=== PATIENT | female | born 1975 | race Caucasian/White ===

== ENCOUNTER 2019-11-19 17:22 | Emergency (ER) | payer MEDICAID ==
[~2019-11-19] VITALS: Ht 162.6 cm; Wt 75.0 kg
[~2019-11-19 17:22] MED LIST: BACDS PO; LACT1CAP26 PO
[2019-11-19 17:48] VITALS: BP 124/78
[2019-11-19] MEDS ORDERED: CLIN300C70 PO (18:00)
== END 2019-11-19 18:24 | disposition home or self-care (01) ==
LOC: ER 17:23
DX: K04.7 Periapical abscess without sinus (principal); G89.29 Other chronic pain; F41.9 Anxiety disorder, unspecified; F15.90 Other stimulant use, unspecified, uncomplicated; Z72.89 Other problems related to lifestyle; Z88.8 Allergy status to other drugs, medicaments and biological substances; Z79.2 Long term (current) use of antibiotics; Z79.899 Other long term (current) drug therapy
CPT/HCPCS: 99283

== ENCOUNTER 2020-11-11 04:03 | Emergency (ER) | payer MEDICAID ==
[~2020-11-11] VITALS: Ht 162.6 cm; Wt 85.0 kg
[~2020-11-11 04:03] MED LIST changes: -BACDS PO; +SULF1TAB45 PO
[2020-11-11 04:19] VITALS: BP 128/92
[2020-11-11] MEDS ORDERED: NAPR-56 PO (04:40)
[2020-11-11] MEDS ORDERED: amox tr/potassium clavulanate 875/125mg TAB PO ONE (04:40)
[2020-11-11] MEDS ORDERED: naproxen 500mg tablet PO ONE (04:40)
[2020-11-11] MEDS ORDERED: AMOX-117 PO (04:40)
[2020-11-11] MEDS ORDERED: HYDROcodone/acetaminophen 5mg/325mg tablet PO ONE (04:40)
== END 2020-11-11 04:51 | disposition home or self-care (01) ==
LOC: ER 04:03
DX: K04.7 Periapical abscess without sinus (principal); K02.9 Dental caries, unspecified; K08.89 Other specified disorders of teeth and supporting structures; G89.29 Other chronic pain; F41.9 Anxiety disorder, unspecified; F15.90 Other stimulant use, unspecified, uncomplicated; Z72.89 Other problems related to lifestyle; Z88.8 Allergy status to other drugs, medicaments and biological substances; Z79.2 Long term (current) use of antibiotics; Z79.899 Other long term (current) drug therapy
CPT/HCPCS: 99284

== ENCOUNTER 2022-03-27 22:54 | Emergency (ER) | payer MEDICAID ==
[~2022-03-27] VITALS: Ht 162.6 cm; Wt 86.4 kg
[2022-03-27 22:57] VITALS: BP 141/73
[2022-03-27] MEDS ORDERED: AMOX-117 PO (23:10)
[2022-03-27] MEDS ORDERED: amox tr/potassium clavulanate 875/125mg TAB PO ONE (23:15)
[2022-03-27] MEDS ORDERED: TETanus/Pertussis (Acell)/Diphther VAC/PF (Tdap-Adult) 0.5ml syringe IMVAC ONE (23:25)
== END 2022-03-27 23:50 | disposition home or self-care (01) ==
LOC: ER 22:54
DX: S61.431A Puncture wound without foreign body of right hand, initial encounter (principal); G89.29 Other chronic pain; M54.9 Dorsalgia, unspecified; F41.9 Anxiety disorder, unspecified; F15.10 Other stimulant abuse, uncomplicated; Z88.8 Allergy status to other drugs, medicaments and biological substances; Z79.899 Other long term (current) drug therapy; W54.0XXA Bitten by dog, initial encounter; Y93.89 Activity, other specified; Y92.89 Other specified places as the place of occurrence of the external cause; Y99.8 Other external cause status
CPT/HCPCS: 73130; 90471; 90715; 99283

== ENCOUNTER 2024-11-16 15:24 | Emergency (ER) | payer MEDICAID ==
[~2024-11-16] VITALS: Ht 162.6 cm; Wt 77.0 kg
--- NOTE | 2024-11-16 15:42 | Physician Documentation ---
History of Present Illness ~ Chief Complaint: Wound Stated Complaint: LEG WOUND Time Seen by MD: 16:19 Primary Medical Doctor: none HPI This is a 48-year-old female who presents to the emergency department due to concerns for development of a large wound to the posterior left calf. She reports that she scraped the left lower extremity on her bed frame about 10 days ago, and developed extensive significant erythema to the entire left leg as a result. She saw her primary care provider at [facility] and was started on linezolid and Augmentin. She is still taking these medications. She has a new concern today, and that has is this large wound to the posterior calf. She believes that this occurred due to the massive swelling in the left lower extremity which did have a blistered appearance at one time. She otherwise endorses feeling overall well, denies chills or fever, nausea or vomiting, shortness of breath. 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 Tetanus within 5 years?: Yes Medication Reconciliation Allergies: Coded Allergies: gabapentin (Verified Allergy, Intermediate, 11/11/20) Scheduled Bacitracin Oint Packet* (Bacitracin Oint Packet*), 1 APPLIC TP BID Lactobacillus Rhamnosus (Culturelle), 10,000 MMU PO BIDWM Sulfamethoxazole/Trimethoprim (Septra Ds Tab), 1 TAB PO BID Past Medical History Past Medical History: Chronic Back Pain, Anxiety Past Surgical History: noncontributory Patient History: Patient reports no known family medical history. Alcohol Use: Occasionally Drug Use: methamphetamine Lives In: Home Review of Systems ROS As stated above in the HPI, otherwise all systems are reviewed and negative. Physical Exam Vital Signs: Temperature: 98.2, Source: Temporal, Heart Rate: 118, Respiratory Rate: 16, BP: 135/86, Pulse Oximetry: 95, Weight: 77.000 Oxygen Flow Rate: 0 Physical Exam General: Alert, no apparent distress. Appears older than stated age. Neck: Full range of motion. Respiratory: Lungs clear, no respiratory distress. janny Chest: No accessory muscle use. Cardiovascular: Regular rate and rhythm, 2/6 systolic murmur. Gastrointestinal: Soft, nontender, nondistended. Bowels sounds present. Extremities: 1+ edema with brawny discoloration RLE. Left leg is edematous and erythematous to the knee, 2+. There is a large ovoid 6x8 cm open area posterior left calf with yellow white center, tender to touch. No firm fluctuance to indicate abscess. Neurologic: Oriented x4. Psychiatric: Normal mood and affect. Skin: Normal color, warm and dry. No edema, no ecchymosis. Progress Progress Note 1710: Patient discussed with [facility]. Results/Orders Results/Orders Orders - KEMI DUPREE INDEPENDENT VIDEO PRODUCER Dressing Orders (11/16/24 17:26) Wound Care Orders (11/16/24 17:26) Completed Orders - KEMI DUPREE INDEPENDENT VIDEO PRODUCER BMP (11/16/24 16:20) Cbc/Diff (11/16/24 16:20) Tetanus/Pertuss/Diph Acell/Pf (Boostrix (11/16/24 17:30) Bacitracin Ointment (Bacitracin Ointment (11/16/24 17:30) Hydrocodone/Apap 5/325mg Tab ([place] 5/32 (11/16/24 17:55) Medications Received in ER Medications (Trade) Dose Ordered Sig/[place] Route PRN Reason Start Time Stop Time Status Last Admin Dose Admin (Boostrix vaccine syringe) 0.5 ml ONCE ONCE IMVAC 11/16/24 17:30 11/16/24 17:31 DC 11/16/24 17:40 0.5 ML (bacitracin ointment) 1 applic ONCE ONCE TP 11/16/24 17:30 11/16/24 17:31 DC 11/16/24 17:42 1 APPLIC ([place] 5/325mg tablet) 1 tab ONCE ONCE PO 11/16/24 17:55 11/16/24 17:56 DC 11/16/24 18:04 1 TAB Vital Signs 11/16/24 11/16/24 11/16/24 15:25 16:32 18:04 Temp 98.2 Pulse 118 Resp 16 18 B/P (MAP) 135/86 Pulse Ox 95 O2 Flow Rate 0 Laboratory Tests Test 11/16/24 17:00 White Blood Count 4.9 Red Blood Count 3.55 L Hemoglobin 9.6 L Hematocrit 28.9 L Mean Corpuscular Volume 81.5 Mean Corpuscular Hemoglobin 27.1 Mean Corpuscular Hemoglobin Concent 33.3 Red Cell Distribution Width 14.6 H Platelet Count 332 Mean Platelet Volume 6.5 L Neutrophils (%) (Auto) 59.3 Lymphocytes (%) (Auto) 30.4 Monocytes (%) (Auto) 7.3 Eosinophils (%) (Auto) 2.3 Basophils (%) (Auto) 0.7 Neutrophils # (Auto) 2.9 Lymphocytes # (Auto) 1.5 Monocytes # (Auto) 0.4 Eosinophils # (Auto) 0.1 Basophils # (Auto) 0.0 CBC Comment Sodium Level 137 Potassium Level 3.9 Chloride Level 101 Carbon Dioxide Level 30.5 Anion Gap 6 L Blood Urea Nitrogen 15 Creatinine 0.69 Estimated GFR/1.73 m2 > 90 BUN/Creatinine Ratio 21.7 H Glucose Level 103 Calcium Level 9.2 Albumin 3.5 Chemistry Comments Medical Decision Making Findings MSE performed in triage and patient returned to ED lobby by nursing staff to await available ED room Differential Dx:Considerations: Include: Abscess, Cellulitis, Dressing change, Healing wound Additional Comment 48 yr old female with hx of methamphetamine use. Found to have systolic murmur today, venous stasis changes RLE, and erythema/edema and wounds to LLE. Still has two days of Zyvoxx and Augmentin left. Will f/u with PCP later this week. No signs of sepsis. No fevers. Reports LLE swelling improving. Wound care provided, including update of tetanus status. Is to return if worse at any time. Ap propriate for outpatient care and PCP followup. Should request cardiology referral from PCP. Departure Time of Disposition: 17:23 Disposition: 01 HOME / SELF CARE / HOMELESS Impression: Primary Impression: Wound Additional Impression: Murmur, cardiac Condition: Stable Discharge Instructions: Heart Murmur, How to Change Your Wound Dressing Additional Instructions: Please keep your upcoming followup appointment with your primary care provider for recheck of your leg. Please discuss your heart murmur and hx of methamphetamine use with your primary care and request a referral to a physician intensivist for further evaluation. Complete the antibiotics as prescribed. Apply bacitracin/non-stick bandage to the large left posterior calf wound. Return if worse at any time. Referrals: NO PRIMARY CARE PROVIDER (PCP) Prescriptions Bacitracin Oint Packet* (Bacitracin Oint Packet*) 1 Each Packet 1 APPLIC TP BID for 10 Days, #20 PACKET Prov: KEMI DUPREE NP 11/16/24 Education Educated: Patient Educated regarding: diagnosis, treatment, prognosis, need for follow up Signature Scribe Signature: x Attestation: The note accurately reflects work and decisions made by me.Kemi Douglas NP 11/16/24 17:15 ROSALIA MASTERS Nov 16, 2024 15:42 KEMI DUPREE NP Nov 16, 2024 17:12
[2024-11-16 17:23] LABS: MEAN PLATELET VOLUME 6.5 FL (7.4-10.4); RED CELL DISTRIBUTION WIDTH 14.6 % (11.5-14.5)
[2024-11-16] MEDS ORDERED: BACI1PAC7 TP (17:25)
[2024-11-16 17:28] LABS: CREATININE 0.69 MG/DL (0.40-0.90); TOTAL CARBON DIOXIDE 30.5 MMOL/L (24-32); eCRCL 86 ML/MIN; eGFR > 90 ML/MIN
[2024-11-16] MEDS: TETanus/Pertussis (Acell)/Diphther VAC/PF (Tdap-Adult) 0.5ml syringe IMVAC ONE (17:40)
[2024-11-16] MEDS: bacitracin 15gm ointment TP ONE (17:42)
[2024-11-16] MEDS: HYDROcodone/acetaminophen 5mg/325mg tablet PO ONE (18:04)
[2024-11-16 18:16] VITALS: BP 129/87; PULSE 90; RESP 17; TEMP 98.2; O2SAT 99
== END 2024-11-16 18:35 | disposition home or self-care (01) ==
LOC: ER 15:24
DX: S80.922A Unspecified superficial injury of left lower leg, initial encounter (principal); M79.89 Other specified soft tissue disorders; R01.1 Cardiac murmur, unspecified; F15.90 Other stimulant use, unspecified, uncomplicated; F41.9 Anxiety disorder, unspecified; G89.29 Other chronic pain; Z88.8 Allergy status to other drugs, medicaments and biological substances; Z79.899 Other long term (current) drug therapy; Z72.89 Other problems related to lifestyle; X58.XXXA Exposure to other specified factors, initial encounter; Y93.89 Activity, other specified; Y92.89 Other specified places as the place of occurrence of the external cause; Y99.8 Other external cause status
CPT/HCPCS: 36415; 80048; 85025; 90471; 90715; 99283; A6402; A6449

== ENCOUNTER 2024-11-30 22:14 | Emergency (ER) | payer MEDICAID ==
[2024-11-30 22:21] VITALS: TEMP 98.3
--- NOTE | 2024-11-30 22:54 | Physician Documentation ---
History of Present Illness ~ Chief Complaint: Leg Pain Stated Complaint: L LEG CELLULITIS Time Seen by MD: 22:45 Primary Medical Doctor: none HPI Patient presents to the emergency room for evaluation of right lower extremity pain erythema and swelling. Patient has a complicated history with significant wound and cellulitis over this past month. Symptoms seemed to have gotten better however the past couple of days worsened. Finished her antibiotics and proximally 10 days ago. Tetanus witin 5 years: Yes Medication Reconciliation Allergies: Coded Allergies: gabapentin (Verified Allergy, Intermediate, 11/11/20) Scheduled Lactobacillus Rhamnosus (Culturelle), 10,000 MMU PO BIDWM Sulfamethoxazole/Trimethoprim (Septra Ds Tab), 1 TAB PO BID Discontinued Medications Bacitracin Oint Packet* (Bacitracin Oint Packet*), 1 APPLIC TP BID Discontinued Reason: Auto Discontinued Past Medical History Past Medical History: Chronic Back Pain, Anxiety Past Surgical History: noncontributory Patient History: Patient reports no known family medical history. Alcohol Use: Occasionally Drug Use: methamphetamine Lives In: Home Review of Systems ROS All review of systems negative except as per HPI Physical Exam Vital Signs: Temperature: 98.3, Source: Oral, Heart Rate: 107, Respiratory Rate: 16, BP: 137/85, Pulse Oximetry: 96 Oxygen Flow Rate: 0 Physical Exam General: Patient is awake, alert, oriented x4 in no acute distress and well appearing.~ Head: Normocephalic and atraumatic. Eyes: Conjunctival normal. EOMI. PERRL. ENT: Mucous membranes moist. Neck: Supple, trachea is midline. Chest: Clear to auscultation bilaterally without rales, rhonchi, or wheezes. There is no accessory muscle use or retractions. Cardiac: RRR without murmurs, gallops, or rubs. Extremity: Cellulitis noted to right lower extremity. From mid calf to ankle. No fluctuance/drainage Progress Results/Orders Results/Orders Vital Signs 11/30/24 22:21 Temp 98.3 Pulse 107 Resp 16 B/P (MAP) 137/85 Pulse Ox 96 O2 Flow Rate 0 Medical Decision Making Findings Patient presents to the emergency room with cellulitis to her left lower e xtremity. Differentials include but are not limited to cellulitis, sepsis, abscess, rash. Physical exam is consistent with cellulitis. We will attempt oral antibiotics with ER precautions discussed. Departure Disposition: HOME / SELF CARE / HOMELESS Impression: Primary Impression: Cellulitis Condition: Stable Discharge Instructions: Cellulitis, Adult Referrals: NO PRIMARY CARE PROVIDER (PCP) Prescriptions Sulfamethoxazole/Trimethoprim (Bactrim Ds Tablet) 800 Mg-160 Mg Tablet 1 TAB PO Q12H for 10 Days, #20 TAB Prov: MARIO BRANNON MD 11/30/24 Education Educated: Patient Educated regarding: diagnosis, treatment, need for follow up Signature Scribe Signature: No scribe Attestation: The note accurately reflects work and decisions made by me.Mario Brannon MD 11/30/24 22:59 MARIO BRANNON MD Nov 30, 2024 22:54
[2024-11-30] MEDS ORDERED: SULF1TAB49 PO (22:58)
[2024-11-30] MEDS ORDERED: CEPH-585 PO (22:59)
[2024-11-30] MEDS: ondansetron 4mg rapidly disintigrating tab PO ONE (23:11)
[2024-11-30] MEDS: sulfamethoxazole/trimethoprim DS (800/160mg) tablet PO ONE (23:11)
[2024-11-30] MEDS: HYDROcodone/acetaminophen 10/325mg tab PO ONE (23:12)
[2024-11-30 23:16] VITALS: BP 137/82; PULSE 96; RESP 16; O2SAT 99
== END 2024-11-30 23:27 | disposition home or self-care (01) ==
LOC: ER 22:14
DX: L03.115 Cellulitis of right lower limb (principal); F41.9 Anxiety disorder, unspecified; F15.90 Other stimulant use, unspecified, uncomplicated; Z88.8 Allergy status to other drugs, medicaments and biological substances
CPT/HCPCS: 99284